=== PATIENT | female | born 1975 | race Caucasian/White ===

== ENCOUNTER 2017-12-02 09:14 | Outpatient (CLI) | payer BC ==
--- NOTE | 2017-12-02 11:25 | OP Clinic Progress Note ---
REASON FOR VISIT: Krystin Osorio returns for follow up of seronegative rheumatoid arthritis of multiple sites. Previous treatments have been Plaquenil 200 mg twice a day for 90 days with no improvement. She is presently on prednisone 5 mg twice a day and continues to have bilateral hand pain with weakness. She is unable to make a fist. She also has pain and swelling in the left ankle greater than the right. Morning stiffness is 1 hour. Pain overall is 5 over 10. Again, difficulty with dressing, tying shoelaces, grasping, and eating. PAST MEDICAL HISTORY: 1. Positive for hepatitis. 2. . 3. Liver biopsy. 4. Breast reduction. PRESENT MEDICATIONS: 1. Prednisone 5 mg twice a day. 2. Methotrexate 3 tablets weekly, which we added 3 weeks ago. 3. Folic acid supplementation. ALLERGIES: Patient reports allergies to tetracycline. SOCIAL HISTORY: She is a former smoker. No alcohol. REVIEW OF SYSTEMS: No fevers, chills, sweats, chest pain, shortness of breath, cough, wheezing, nausea, vomiting, or diarrhea. PHYSICAL EXAMINATION: VITAL SIGNS: Height: 5 feet 11 inches. Weight: 206. T: 98.3, R: 20, heart rate 81, BP: 130/80. HEENT: Sclerae are anicteric. Conjunctivae are pink. No stomatitis or glossitis. LUNGS: Clear with no crackles, wheezing, or rubs. HEART: Regular rate and rhythm. ABDOMEN: Soft and nontender with no hepatic or splenic enlargement. No tenderness. SKIN: No rashes. No nodules. PERIPHERAL JOINTS: DIPs and PIPs are unremarkable. There is 2+ synovitis of right MCP. Tenderness with warmth of right wrist. 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 Unable to make fist with her left hand. Elbows are unremarkable. Shoulders are tender. No effusions. Good range of motion. Sternoclavicular joints are tender. No synovitis. TMJ and AC joints are unremarkable. Good range of motion at the hips. Knees are unremarkable with no effusions or tenderness. Both ankles are tender. MTPs slightly tender. IMPRESSION: Seronegative rheumatoid arthritis, having failed Plaquenil. PLAN: 1. I am bumping up her methotrexate to 6 tablets weekly. 2. I am bumping up her prednisone to 10 mg twice a day. 3. We will check labs today for disease activity and drug toxicity. 4. Continue Folic acid supplementation. 5. I will see her back in 8 weeks. Thank you very much. MTDD
== END 2017-12-02 12:31 ==
LOC: RHEU 09:14
PROVIDERS: ATTEND Internal Medicine
DX: M06.9 Rheumatoid arthritis, unspecified (principal)
CPT/HCPCS: 99213; 99214

== ENCOUNTER 2018-02-03 09:38 | Outpatient (CLI) | payer BC ==
--- NOTE | 2018-02-03 12:21 | OP Clinic Progress Note ---
REASON FOR VISIT: Krystin Osorio returns for follow up of seronegative rheumatoid arthritis of multiple sites. Despite doubling her methotrexate and doubling her prednisone, she continues to have significant pain and morning stiffness lasting an hour, unable to make a fist and, again, pain is maybe 5/10. She had an episode of right wrist swelling, which was quite severe. It lasted about a week. She brings in a picture of it and indeed she diffuse dorsal swelling. Otherwise, no new symptoms and she has had no fevers, chills, sweats, chest pain, shortness of breath, cough, wheezing, nausea, vomiting, or diarrhea. No numbness or tingling of her extremities and no rashes or nodules. PAST MEDICAL AND SURGICAL HISTORY: 1. Hepatitis. 2. . 3. Liver biopsy. 4. Breast reduction. PRESENT MEDICATIONS: 1. Prednisone 10 mg twice a day. 2. Methotrexate 6 tablets weekly. 3. Folic acid. ALLERGIES: Patient reports allergies to tetracycline. SOCIAL HISTORY: Presently, no smoking and no alcohol. REVIEW OF SYSTEMS: No fevers, chills, sweats, chest pain, shortness of breath, cough, wheezing, nausea, vomiting, or diarrhea. PHYSICAL EXAMINATION: VITAL SIGNS: Height: 5 feet 11 inches. Weight: 209. T: 98.5, R: 20, heart rate 77, BP: 130/80. HEENT: Sclerae are anicteric. Conjunctivae are pink. No stomatitis or glossitis. LUNGS: Clear with no crackles or wheezing. HEART: Regular rate and rhythm. ABDOMEN: Soft and nontender. VASCULAR: No edema or cyanosis. PERIPHERAL JOINTS: DIPs and PIPs are unremarkable. There is no synovitis of the MCPs on today's visit, just tenderness. Some pain on palpation of her right wrist. There is some decreased flexion and extension. [employer] strength is maybe 4/5. Otherwise, shoulders have no tenderness. Good range of motion. Hips, knees, ankles, and feet are tender but no effusions. LABORATORY: Her labs from her last visit were reviewed. Rheumatoid factor was negative. Sedimentation rate was zero. CRP was 0.04. IMPRESSION: Seronegative rheumatoid arthritis, having failed Plaquenil. PLAN: 1. I am bumping up her methotrexate to 8 tablets weekly. 2. I am stopping her prednisone and switching her over to Medrol 4 mg twice a day. 3. We will check labs today for disease activity and drug toxicity, as well as a uric acid, and update a TSH, which has not been checked in over a [id number]. 4. If she should fail this, we will consider instituting a biologic. Thank you very much. Best regards, DORITA
== END 2018-02-03 09:40 ==
LOC: RHEU 09:38
PROVIDERS: ATTEND Internal Medicine
DX: M06.9 Rheumatoid arthritis, unspecified (principal)
CPT/HCPCS: 99213; 99214

== ENCOUNTER 2018-03-31 10:58 | Outpatient (CLI) | payer BC ==
--- NOTE | 2018-04-03 14:11 | OP Clinic Progress Note ---
REASON FOR VISIT: Krystin Osorio returns for follow up of seronegative rheumatoid arthritis. She has previously tried and failed prednisone and Plaquenil. Presently, she is requiring Medrol 4 mg 3 times a day in combination with methotrexate 8 tablets weekly. Despite this, she continues to have severe pain at 5/10 and morning stiffness lasting over an hour. She had an episode of severe left knee swelling and she shows me a picture indeed of a massive effusion of the left knee. Her right wrist has somewhat improved but she still is unable to make a fist and she continues to have pain in the ankle and she has noted progressive deformity of her mid-foot. She is wearing her brace. PAST MEDICAL HISTORY: 1. Drug-induced hepatitis. 2. . 3. Breast reduction. PRESENT MEDICATIONS: 1. Medrol 4 mg 3 times a day. 2. Methotrexate 8 tablets weekly. 3. Folic acid 1 mg daily. ALLERGIES: Tetracycline. PREVIOUS TREATMENT TRIED AND FAILED: 1. Prednisone. 2. Plaquenil. SOCIAL HISTORY: She is . No smoking. No drinking. FAMILY HISTORY: Mother and aunt both have rheumatoid arthritis. REVIEW OF SYSTEMS: As above and in addition, she has had no fevers or chills. No pleurisy. No shortness of breath, cough, or wheezing. No skin rashes. No skin nodules. No numbness or tingling of her extremities. No diarrhea or belly pain. PHYSICAL EXAMINATION: VITAL SIGNS: Weight: 205 pounds. T: 97.8, P: 80, R: 16, BP: 116/64. HEENT: Sclerae are anicteric. Conjunctivae are pink. No stomatitis or glossitis. Neck: No cervical nodes. LUNGS: Clear bilaterally with no crackles or wheezing. HEART: Regular rate and rhythm. ABDOMEN: Soft and nontender. VASCULAR: No edema or cyanosis. PERIPHERAL JOINTS: DIPs and PIPs are unremarkable. MCPs with 1+ synovitis at #3 on the right and left. Wrists with 1+ synovitis with decreased flexion and extension. She is unable to make a fist. 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 Elbows and shoulders are unremarkable. Both knees are tender. Some synovitis of the left knee. Ankles are tender. Right mid- foot shows collapse of the arch with varus deformity. MTPs are tender. LABORATORY: Her labs from February 03 are reviewed and are included in the chart. CMP and CBC were within normal limits. Uric acid was 3.7. TSH was 0.603. IMPRESSION: Seronegative rheumatoid arthritis of multiple sites failing present regimen. PLAN: 1. I would like to add a biologic and I am prescribing Humira 40 mg subcutaneous every other week. 2. Labs due today are QuantiFERON-TB Gold, CBC, and CMP. She has had a prior evaluation for viral hepatitis, which has been negative, and we will not repeat those today. This may be deemed a letter of medical necessity. DORITA
== END 2018-03-31 11:03 | disposition home or self-care (01) ==
LOC: RHEU 10:58
PROVIDERS: ATTEND Internal Medicine
DX: M06.00 Rheumatoid arthritis without rheumatoid factor, unspecified site (principal)
CPT/HCPCS: 99213